=== PATIENT | female | born 1990 | race Caucasian/White ===

== ENCOUNTER 2018-07-03 11:01 | Emergency (ER) | payer OTHER ==
[2018-07-03] MEDS ORDERED: TETRACAINE HCL 0.5% OPH SOLN 4 ML OD ONE (12:14)
--- NOTE | 2018-07-03 12:59 | ER Document Report ---
HPI - HPI Time Seen by Provider: 07/03/18 12:13 Pain Level: 4 Notes: Patient is a 27-year-old female with no significant past medical history who presents to the emergency department complaining of possible abrasion to her right eye and irritation associated. Patient states that this started about 3 days ago when she felt like something was in her eye. Patient states that she is still able to see without any difficulties and has not had any purulence aside from some matting this morning. She has been eating and drinking without difficulty. She is urinating normally. She does not wear contact lenses. Patient states that she is capable to keep her eye open without difficulty otherwise. She does not have a significant sensation of foreign body, just irritation at this time. Denies any headache, fever, head injury, neck pain, changes in vision/speech/mentation/hearing, URI, sore throat, chest pain, palpitations, syncope, cough, shortness of breath, wheeze, dyspnea, abdominal pain, nausea/vomiting/diarrhea, urinary retention, dysuria, hematuria, or rash. - ROS Systems Reviewed and Negative: Yes All other systems reviewed and negative - CONSTITUTIONAL Constitutional: DENIES: Fever, Chills - EENT EENT: REPORTS: Eye problems - right eye. DENIES: Sore Throat, Ear Pain - NEURO Neurology: DENIES: Headache, Weakness, Vision blurred, Dizzinesss / Vertigo - CARDIOVASCULAR Cardiovascular: DENIES: Chest pain - RESPIRATORY Respiratory: DENIES: Trouble Breathing, Coughing - GASTROINTESTINAL Gastrointestinal: DENIES: Abdominal Pain, Black / Bloody Stools - URINARY Urinary: DENIES: Dysuria, Urgency, Frequency - REPRODUCTIVE Reproductive: DENIES: : - MUSCULOSKELETAL Musculoskeletal: DENIES: Extremity pain Past Medical History - Social History Smoking Status: Never Smoker Chew tobacco use (# tins/day): No Frequency of alcohol use: None Drug Abuse: None Family History: Reviewed & Not Pertinent - Her Patient has suicidal ideation: No Patient has homicidal ideation: No Neurological Medical History: Reports: Hx Migraine Renal/ Medical History: Denies: Hx Peritoneal Dialysis Past Surgical History: Reports: Hx Abdominal Surgery - as a child., Hx Orthopedic Surgery - left wrist. - Immunizations Hx Diphtheria, Pertussis, Tetanus Vaccination: Yes Vertical Provider Document - CONSTITUTIONAL Agree With Documented VS: Yes Notes: PHYSICAL EXAMINATION: GENERAL: Well-appearing, well-nourished and in no acute distress. A&Ox4 HEAD: Atraumatic, normocephalic. EYES: Pupils equal round and reactive to light, extraocular movements intact, sclera anicteric, conjunctiva left shows very mild episcleritis b/l w/o discharge or matting. Non-tender to palp of the globe and eye itself. No surrounding erythema or swelling noted. Visual acuity 20/25 b/l and in each eye (performed by myself at bedside with my own eye chart). Wood's lamp/flourescein: + two small abrasions 9 O'clock position to the cornea w/o obvious rust ring or significant foreign body. No laceration, ulceration, or sameer sign noted. No obvious foreign body appreciated. ENT: EAC clear b/l. TM's intact b/l without erythema, fluid, or perforation. Nares patent and without discharge. oropharynx clear without exudates. No tonsilar hypertrophy or erythema. Moist mucous membranes. No sinus tenderness. Uvula midline. No palatine shift. No airway compromise. No drooling or hoarseness. NECK: Normal range of motion, supple without lymphadenopathy. No rigidity/meningismus. LUNGS: Breath sounds clear to auscultation bilaterally and equal. No wheezes rales or rhonchi. HEART: Regular rate and rhythm without murmurs, rubs, gallops. Extremities: No cyanosis, clubbing, or edema b/l. Peripheral pulses 2+. Capillary refill less than 3 seconds. NEUROLOGICAL: Cranial nerves grossly intact. Normal speech, normal gait. Normal sensory, motor exams PSYCH: Normal mood, normal affect. SKIN: Warm, Dry, normal turgor, no rashes or lesions noted. - INFECTION CONTROL TRAVEL OUTSIDE OF THE [place] IN LAST 30 DAYS: No Course - Re-evaluation Re-evalutation: 07/03/18 12:58 Patient is an afebrile, well-hydrated, 27-year-old female who presents to the ED with corneal abrasion to the right eye without evidence of an obvious foreign body. Vitals are acceptable without any significant tachycardia, tachypnea, or hypoxia. PE is otherwise unremarkable. See exam findings. Patient is nontoxic-appearing and is able to tolerate p.o. without difficulty. Visual acuity is intact. Tetracaine did resolve pt's symptoms. Low suspicion for any lid foreign body, deep space infection including orbital cellulitis/abscess, acute glaucoma, penetrating globe injury, retinal detachment, meningitis, sepsis, fracture, compartment syndrome. I will send home with a prescription for Polytrim to use as directed. Conservative measures otherwise for symptoms with proper handwashing. Recheck with your PCM in 3-5 days. Call ophthalmology today to schedule an appointment for further evaluation and management. Return to the ED with any worsening/concerning symptoms otherwise as reviewed in discharge. Patient is in agreement. - Vital Signs Vital signs: Temp Pulse Resp BP Pulse Ox 98.3 F 75 16 127/89 H 100 07/03/18 11:08 07/03/18 11:08 07/03/18 11:08 07/03/18 11:08 07/03/18 11:08 Procedures - Eye Procedure Right Time completed: 12:30 Eye Irrigated w/ Saline (ccs): 20 Alcaine Drops Administered: Yes - tetracaine Fluorescein applied: Right Notes: see exam Discharge - Discharge Clinical Impression: Corneal abrasion, right Qualifiers: Encounter type: initial encounter Qualified Code(s): S05.01XA - Injury of conjunctiva and corneal abrasion without foreign body, right eye, initial encounter Condition: Stable Disposition: HOME, SELF-CARE Instructions: Corneal Abrasion ([facility]), Eyedrop Use ([facility]) Additional Instructions: Keep eyes clean Avoid scratching/touching eyes Wash hands regularly Use eye drops as directed Maintain adequate fluid intake tylenol/ibuprofen as needed over the counter cold medication as needed for symptoms F/u: with your PCM in 3-5 days for a recheck Schedule a consult with Ophthalmology this week for ongoing/worsening symptoms Return to the ED with any worsening symptoms and/or development of fever, headache, changes in vision, eye pain, worsening eye redness, redness around the eyes, purulent discharge, sore throat, facial swelling, neck pain/stiffness, chest pain, palpitations, syncope, shortness of breath, trouble breathing, abdominal pain, n/v/d, blood in stool/urine, dysuria, or other worsening symptoms that are concerning to you. Prescriptions: Polymyxin B Sulf/Trimethoprim [Polytrim Eye Drops] 1 drop OD Q3H #10 ml Forms: Elevated Blood Pressure Referrals: FENSTERMACHER,VLADIMIR, PA-C [NO LOCAL MD] - Follow up as needed SID VALERIO MD [ACTIVE STAFF] - 07/05/18
[2018-07-03 13:23] VITALS: BP 124/87
== END 2018-07-03 13:25 | disposition home or self-care (01) ==
LOC: ER 11:01
DX: S05.01XA Injury of conjunctiva and corneal abrasion without foreign body, right eye, initial encounter (principal); X58.XXXA Exposure to other specified factors, initial encounter
CPT/HCPCS: 99283; J3490

== ENCOUNTER → 2018-09-04 | Day surgery (SDC) | payer OTHER ==
[~2018-09-04] MED LIST: BUPIVACAINE HCL 0.5 % INJ/PF 30 ML SDV ONE; LIDOCAINE 1% INJ-PF (10 MG/ML) 30 ML SDV ONE; LIDOCAINE 2% INJ (20 MG/ML) 20 ML MDV ONE; METHYLPREDNISOLONE ACETATE INJ 40 MG/1 ML ML ONE
--- NOTE | 2018-09-04 11:30 | Operative Report ---
PREOPERATIVE DIAGNOSIS: Lumbar Spondylosis POSTOPERATIVE DIAGNOSIS: Lumbar Spondylosis PROCEDURE: Radiofrequency Ablation of medial branches - RT L3 L4 dorsal primary ramus of L5. DATE OF PROCEDURE: September 04, 2018 ANESTHESIA: Local COMPLICATIONS: None CONSENT: A full description of the procedure was provided including benefits as well as possible complications. All questions were answered and informed consent was given and signed. ASA guidelines for fasting were verified prior to sedation. PROCEDURE IN DETAIL The patient was brought into the fluoroscopy suite and positioned into the prone position on the fluoroscopy table and allowed to adjust to a position of comfort. A grounding pad was placed on the left thigh. The lumbar region was widely prepped with a chloraprep solution, allowed to air dry and draped in standard sterile surgical fashion. Local anesthesia was provided by 1 mL of 1 % lidocaine delivered with a 25 g needle. A 17g 75mm radiofrequency introducer needle was placed to the planned anatomic targets guided with intermittent fluoroscopy with a perpendicular approach to terminally place at the junction of the superior articular process and the transverse process of the right L4 L5 and the base of the sacral ala on the right for the L5 medial branch nerve. The stylets were removed and radiofrequency probes with a 4mm active tip were then inserted. Needle tip position of the probes was verified in the AP, oblique, and lateral views. At each site, the medial branch nerve was stimulated at 2 Hz to a maximum 1-2 volts determined to finalize safe needle and electrode placement. The patient was awake and responsive during this portion of the procedure. Each target was anesthetized with 1-2 mL of 2 % lidocaine for anesthesia for lesioning and then each target was lesioned at 80 degrees Celsius for 2 minutes and 30 seconds. Tissue impedences were noted to be between 250 and 500 Ohms. Electrodes were removed and each site was infiltrated with 1mL of a mixture containing 40mg depomedrol and 0.25% bupivacaine. [place] were then removed and bandages placed over the needle placement sites, the patient then returned to the supine position on a stretcher and transported to the recovery room without hemodynamic, neurologic, or allergic reactions. Fluoroscopic images were printed for hard copy recording and digitally archived. POST PROCEDURE EVALUATION: The patient was comfortable in the recovery room. The patient is aware that pain may worsen before remitting and 4 - 6 weeks may be required prior to the onset of pain relief. IMPRESSION: 1. Technically successful right L3 L4 L5 medial branch radiofrequency neurotomy for denervation on the right without complication. 2. RTC in 3 weeks. 3. Estimated Blood Loss: Minimal
== END ==
LOC: RAD 10:16
PROVIDERS: ATTEND Pain Medicine Interventional Pain Medicine
DX: M47.816 Spondylosis without myelopathy or radiculopathy, lumbar region (principal)
CPT/HCPCS: 64636; 64635; J3490 ×3; J1020

== ENCOUNTER 2020-07-04 18:16 | Emergency (ER) | payer OTHER ==
[2020-07-04] MEDS ORDERED: NORMAL SALINE 1000 ML 1,000 ML IV ONE ×2 (18:45→21:58)
--- NOTE | 2020-07-04 18:49 | ER Document Report ---
ED Medical Screen (RME) - General Chief Complaint: Vomiting Stated Complaint: VOMITING,COUGH,CONGESTION Time Seen by Provider: 07/04/20 18:39 Primary Care Provider: MARYANN,MILIND [Primary Care Provider] - Follow up as needed TRAVEL OUTSIDE OF THE [place] IN LAST 30 DAYS: No - HPI Notes: Patient is a 29-year-old female with no medical history who presents with vomiting for the last 4 days. Patient states she has been unable to keep anything down including fluids and solids for the past 2 days. Patient also reports substernal chest pain, shortness of breath, and cough for the past week. Patient was seen in urgent care a week ago and had COVID testing which was negative. She denies fever and abdominal pain. - Related Data Allergies/Adverse Reactions: Influenza Virus Vaccines Allergy (Verified 07/04/20 18:39) shellfish derived Allergy (Verified 07/03/18 11:02) Past Medical History Neurological Medical History: Reports: Hx Migraine Renal/ Medical History: Denies: Hx Peritoneal Dialysis Past Surgical History: Reports: Hx Abdominal Surgery - as a child., Hx Orthopedic Surgery - left wrist. - Immunizations Hx Diphtheria, Pertussis, Tetanus Vaccination: Yes Physical Exam - Vital signs Vitals: Temp Pulse Resp BP Pulse Ox 98.3 F 115 H 16 120/79 95 07/04/20 18:24 07/04/20 18:24 07/04/20 18:24 07/04/20 18:24 07/04/20 18:24 - Respiratory Respiratory status: No respiratory distress Breath sounds: Normal - Abdominal Distension: No distension Tenderness: Nontender Notes: Exam limited due to patient's seated position in triage Course - Re-evaluation Re-evalutation: Patient offered COVID and influenza testing which she declined. I have greeted and performed a rapid initial assessment of this patient. A comprehensive ED assessment and evaluation of the patient, analysis of test results and completion of medical decision making process will be conducted by an additional ED providers. The patient was evaluated during the global COVID-19 pandemic and that diagnosis was suspected/considered upon their initial presentation. Their evaluation, treatment and testing was consistent with current guidelines for patients who present with complaints or symptoms that may be related to COVID-19. - Vital Signs Vital signs: Temp Pulse Resp BP Pulse Ox 98.3 F 115 H 16 120/79 95 07/04/20 18:24 07/04/20 18:24 07/04/20 18:24 07/04/20 18:24 07/04/20 18:24 Doctor's Discharge - Discharge Referrals: [facility] [Primary Care Provider] - Follow up as needed
[2020-07-04 20:12] LABS: APPEARANCE,URINE CLOUDY; BILIRUBIN,URINE SMALL (NEGATIVE); GLUCOSE, URINE NEGATIVE (NEGATIVE); KETONES,URINE TRACE mg/dL (NEGATIVE); LEUKOCYTE ESTERASE,URINE TRACE (NEGATIVE); NITRITE,URINE NEGATIVE (NEGATIVE); PROTEIN,URINE >=500 mg/dL (NEGATIVE); URINE SPECIFIC GRAVITY 1.034
[2020-07-04 20:13] LABS: COLOR,URINE DARK YELLOW
--- NOTE | 2020-07-04 20:51 | ER Document Report ---
ED GI/ - General Chief Complaint: Vomiting Stated Complaint: VOMITING,COUGH,CONGESTION Time Seen by Provider: 07/04/20 18:39 Primary Care Provider: [facility] [Primary Care Provider] - Follow up as needed Mode of Arrival: Ambulatory Information source: Patient Notes: 29-year-old female past medical history significant for migraines, chronic back pain, depression presents to the emergency room complaining of persistent vomiting for the past 4 days. Also complains of general body aches subjective fever and decreased urinary output. Denies any ill contacts. Denies any COVID-19 exposure. States has tried taking Phenergan at home but she vomits it back up. Has also tried taking Advil and Tylenol without relief. [facility] she did have a COVID-19 test 10 days ago and received negative test results last Monday. [facility] she was tested patient symptomatic at that time. States she was feeling better until this past Monday. States she went to urgent care p rior to coming to the emergency room had a negative chest x-ray. States they come to start an IV to give her fluids and antiemetics, unable to get an IV started so she was sent to the emergency room. TRAVEL OUTSIDE OF THE [place] IN LAST 30 DAYS: No - Related Data Allergies/Adverse Reactions: Influenza Virus Vaccines Allergy (Verified 07/04/20 18:39) shellfish derived Allergy (Verified 07/03/18 11:02) Home Medications: gabapentin. ambien. topamate. melatonin. prozac Past Medical History - General Information source: Patient - Social History Smoking Status: Former Smoker Chew tobacco use (# tins/day): No Frequency of alcohol use: None Drug Abuse: None Family History: Reviewed & Not Pertinent - Her Patient has homicidal ideation: No Neurological Medical History: Reports: Hx Migraine Renal/ Medical History: Denies: Hx Peritoneal Dialysis Past Surgical History: Reports: Hx Abdominal Surgery - as a child., Hx Orthopedic Surgery - left wrist. - Immunizations Hx Diphtheria, Pertussis, Tetanus Vaccination: Yes Review of Systems - Review of Systems Constitutional: Fever, Malaise EENT: No symptoms reported Cardiovascular: No symptoms reported. denies: Chest pain Respiratory: Cough. denies: Short of breath Gastrointestinal: Nausea, Vomiting. denies: Abdominal pain, Diarrhea, Constipation Genitourinary: Other - Decreased urinary output Female Genitourinary: No symptoms reported Musculoskeletal: Muscle pain Skin: No symptoms reported Hematologic/Lymphatic: No symptoms reported Neurological/Psychological: No symptoms reported -: Yes All other systems reviewed and negative Physical Exam - Vital signs Vitals: Temp Pulse Resp BP Pulse Ox 98.3 F 115 H 16 120/79 95 07/04/20 18:24 07/04/20 18:24 07/04/20 18:24 07/04/20 18:24 07/04/20 18:24 - General General appearance: Appears well, Alert In distress: Mild - HEENT Head: Normocephalic, Atraumatic Eyes: Normal Pupils: PERRL - Respiratory Respiratory status: No respiratory distress Chest status: Nontender Breath sounds: Normal Chest palpation: Normal - Cardiovascular Rhythm: Tachycardia Heart sounds: Normal auscultation Murmur: No Friction rub: No Gallop: None auscultated - Abdominal Inspection: Normal Distension: No distension Bowel sounds: Normal Tenderness: Nontender Organomegaly: No organomegaly - Back Back: Normal, Nontender. No: CVA tenderness - Neurological Neuro grossly intact: Yes Cognition: Normal Orientation: AAOx4 Ankur Coma Scale Eye Opening: Spontaneous Ankur Coma Scale Verbal: Oriented [place] Coma Scale Motor: Obeys Commands Ankur Coma Scale Total: 15 Speech: Normal Motor strength normal: LUE, RUE, LLE, RLE Sensory: Normal - Skin Skin Temperature: Warm Skin Moisture: Dry Skin Color: Normal Course - Re-evaluation Re-evalutation: 07/04/20 21:59 Patient denies any chest pain or shortness of breath or difficulty breathing to current provider. It is documented in her triage note that she was having chest discomfort that was worse with breathing but denied those complaints at this time. Patient is resting comfortably states she is feeling slightly better still complains of some nausea. Patient refused her chest x-ray as she states she had one done at the urgent care before she came to the emergency room and they told her there was nothing abnormal on her chest x-ray. Patient with an elevated white blood count which could be secondary to the vomiting. She denies any pain at this time. We will give another liter of fluid, IV Reglan, and reevaluate. 07/04/20 23:11 07/04/20 23:18 Patient is resting comfortably afebrile, nontoxic-appearing, able to tolerate p.o. fluids. Continues to deny any chest pain or pain anywhere else. Will discharge home with Zofran. Counseled on importance to push fluids. Follow-up with her primary care physician if not improving in 2 to 3 days. Patient was given strict return to the emergency room guidelines. Return for any new or worsening symptoms. All questions were answered. Patient verbalized understanding and agrees with plan of care. - Vital Signs Vital signs: Temp Pulse Resp BP Pulse Ox 98.9 F 109 H 18 119/74 97 07/04/20 23:30 07/04/20 23:30 07/04/20 23:30 07/04/20 23:30 07/04/20 23:30 - Laboratory Results Result Diagrams: 07/04/20 20:55 07/04/20 20:55 Laboratory Results Interpreted: 07/04/20 07/04/20 07/04/20 19:45 20:55 20:55 WBC 18.7 H Hct 35.9 L Seg Neuts % (Manual) 95 H Lymphocytes % (Manual) 3 L Monocytes % (Manual) 2 L Abs Neuts (Manual) 17.8 H Sodium 136.9 L Chloride 97 L Glucose 114 H Urine Protein >=500 H Urine Ketones TRACE H Urine Blood SMALL H Urine Bilirubin SMALL H Urine Urobilinogen 4.0 H Ur Leukocyte Esterase TRACE H Critical Laboratory Results Reviewed: No Critical Results - Radiology Results Critical Radiology Results Reviewed: No Critical Results - EKG Interpretation by Me Rate: Tachycardia Additional EKG results interpreted by me: 07/04/20 20:50 EKG was interpreted by ER physician Dr. Kay No acute STEMI Sinus tachycardia Rate [address] wave abnormalities No previous EKG for comparison Discharge - Discharge Clinical Impression: Dehydration Vomiting Qualifiers: Vomiting type: unspecified Vomiting Intractability: non-intractable Nausea presence: with nausea Qualified Code(s): R11.2 - Nausea with vomiting, unspecified Condition: Stable Disposition: HOME, SELF-CARE Instructions: Dehydration ([facility]), Vomiting ([facility]) Additional Instructions: You have been seen in the Emergency Department (ED) today for nausea and vomiting. Your work up today has not shown a clear cause for your symptoms. You have been prescribed Zofran; please use as prescribed as needed for your nausea. Follow up with your doctor as soon as possible regarding today's emergent visit and your symptoms of nausea. Return to the Emergency Department (ED) if you develop abdominal pain, bloody vomiting, bloody diarrhea, if you are unable to tolerate fluids due to vomiting, or if you develop other symptoms that concern you. Please be sure to drink plenty of fluids while out in the heat. You can purchase packets of electrolyte replacement solutions such as Pedialyte or propel that you can add to plain water. This will help to make sure that you are getting adequate electrolytes in addition to fluids while working outside. Please return to the emergency department if you pass out, developed diffuse muscle cramping, have persistent vomiting, or have any other symptoms that are worrisome to you. Referrals: [facility] [Primary Care Provider] - Follow up as needed
[2020-07-04] MEDS ORDERED: ONDANSETRON HCL INJ/PF 4 MG/2 ML SDV IV ONE (20:56)
[2020-07-04 21:16] LABS: HEMATOCRIT 35.9 % (36.0-47.0); HEMOGLOBIN 12.7 g/dL (12.0-15.5); MEAN CORPUSCULAR HEMOGLOBIN 29.5 pg (27.0-33.4); MEAN CORPUSCULAR HGB CONC 35.4 g/dL (32.0-36.0); MEAN CORPUSCULAR VOLUME 84 fl (80-97); PLATELET COUNT 435 10^3/uL (150-450); RED CELL DISTRIBUTION WIDTH 12.9 % (11.5-14.0); WHITE BLOOD COUNT 18.7 10^3/uL (4.0-10.5)
[2020-07-04 21:30] LABS: ALBUMIN 3.9 g/dL (3.5-5.0); ALKALINE PHOSPHATASE 94 U/L (38-126); ANION GAP 10 (5-19); ASPARTATE AMINO TRANSFERASE 28 U/L (14-36); BILIRUBIN,DIRECT 0.4 mg/dL (0.0-0.4); BILIRUBIN,TOTAL 0.9 mg/dL (0.2-1.3); BLOOD UREA NITROGEN 15 mg/dL (7-20); CARBON DIOXIDE 30 mmol/L (22-30); CHLORIDE 97 mmol/L (98-107); GLUCOSE 114 mg/dL (75-110); POTASSIUM 3.9 mmol/L (3.6-5.0)
[2020-07-04 21:41] LABS: ABSOLUTE LYMPHOCYTES# (MANUAL) 0.6 10^3/uL (0.5-4.7); ABSOLUTE MONOCYTES # (MANUAL) 0.4 10^3/uL (0.1-1.4); BASOPHILS % (MANUAL) 0 % (0-2); EOSINOPHILS % (MANUAL) 0 % (0-6); LYMPHOCYTES % (MANUAL) 3 % (13-45); MONOCYTES % (MANUAL) 2 % (3-13); SEGMENTED NEUTROPHILS % (MAN) 95 % (42-78); TOTAL CELLS COUNTED 100
[2020-07-04 21:42] LABS: PLATELET COMMENT ADEQUATE; TOXIC GRANULATION SLIGHT; TOXIC VACUOLATION PRESENT
[2020-07-04 21:44] LABS: POIKILOCYTOSIS SLIGHT
[2020-07-04 21:45] LABS: BURR CELLS SLIGHT; POLYCHROMASIA SLIGHT
[2020-07-04] MEDS ORDERED: METOCLOPRAMIDE HCL INJ/PF 10 MG/2 ML SDV IV ONE (21:58)
--- NOTE | 2020-07-04 22:37 | EKG REPORT ---
SEVERITY:- OTHERWISE NORMAL ECG - SINUS TACHYCARDIA : Confirmed by: Jt Nolen 04-Jul-2020 22:36:23
[2020-07-04] MEDS ORDERED: ONDANSETRON ODT 4 MG TAB (6 TAB/ER DISP) PO PRN (23:17)
[2020-07-04 23:31] VITALS: BP 119/74
== END 2020-07-04 23:31 | disposition home or self-care (01) ==
LOC: ER 18:16
DX: E86.0 Dehydration (principal); R11.2 Nausea with vomiting, unspecified; R05 Cough; G89.29 Other chronic pain; M54.9 Dorsalgia, unspecified
CPT/HCPCS: 93005; 99284; 96361; 96374; 96375; 36415; 87086; 84703; 85025; 80053; 81001; 84484; 93010; J2765; J2405; J7030